=== PATIENT | female | born 1975 | race Asian ===

== ENCOUNTER 2022-03-04 21:01 | Emergency (ER) | payer MEDICARE, MEDICAID, SELFPAY ==
[2022-03-04 22:16] VITALS: BP 116/74; PULSE 86; RESP 16; TEMP 36.6; O2SAT 98; BMI 20.3
--- NOTE | 2022-03-04 23:55 | ED.NURSE ---
Pt brought back to [facility].
--- NOTE | 2022-03-05 00:14 | CRLHL7_ITS ---
For Patients: As a result of the Century Cures Act, medical imaging exams and procedure reports are released immediately into your electronic medical record. You may view this report before your referring provider. If you have questions, please contact your health care provider. HISTORY: Pain and swelling COMPARISON: None available. FINDINGS: The left foot is examined with AP, lateral, and oblique views. There is no sign of fracture or dislocation. There is moderate diffuse swelling of the distal foot, with no sign of any radiopaque foreign body or soft tissue gas. The soft tissues elsewhere in the foot are normal in appearance. There is a moderate posterior calcaneal spur. IMPRESSION: Moderate swelling of the distal foot with no sign of any osseous injury or radiopaque foreign body. Moderate posterior calcaneal spur. Dictated by Mohit Alexis MD @ 03/05/2022 1:11:04 AM (Electronically Signed)
--- NOTE | 2022-03-05 00:16 | ED_ITS ---
HPI - Extremity Injury (Lower) General Chief Complaint: Extremity Pain/Injury, Lower Stated Complaint: fall 2 times within 24 hours, swollen lft ankle Time Seen by Provider: 03/05/22 00:08 History of Present Illness HPI Narrative: 46-year-old woman presenting to the emergency department [facility] with complaint of left ankle area pain after a couple of falls in the last 2 days. She does have difficulty with mobility and has been now counseled to use a walker when getting about the home and over the years has had leg spasms of some sort that will cause her legs just give out sounds like particularly left leg. Has had increasing swelling and pain around her left ankle and foot. No other injuries sustained. Reports a history of ankle fracture at some point in the past as well. She has continued to painfully ambulate on this with her walker Epilepsy history Medications reviewed Review of Systems Status of ROS: Reports: 6 or more systems reviewed and unremarkable except as noted in History and below PFSH PFSH Social History Smoking Status: Never smoker Do you use any of these nicotine containing products: None Second hand tobacco smoke exposure: No How often do you have a drink containing alcohol: never How often do you have six or more drinks on one occasion: Never AUDIT-C Alcohol total score: 0 Non-prescribed substance use: denies use Exam Narrative: Exam Narrative: Very pleasant. Seated in wheelchair. NAD. Uncomfortable with movement of her left leg. Breathing easily. Cranial nerves 2-12 intact. Cardiovascular with regular rate and rhythm Moving all extremities without difficulty other than noted as above Diffusely tender left ankle and foot, not toes, moderate pitting edema as well. No significant erythematous changes Const: Vital Signs, click to edit/add: Vital Signs - 24 hr 03/04/22 22:16 03/05/22 01:17 03/05/22 02:05 Temperature 97.8 F 97.8 F Pulse Rate [Pulse Oximeter] 86 95 95 Respiratory Rate 16 16 Blood Pressure [Ri ght Upper Arm] 116/74 116/74 Pulse Oximetry 98 100 Oxygen Delivery Me thod Room Air Room Air Documenting provider has reviewed patient's vital signs: yes Course Vital Signs Vital signs: Initial Vital Signs Temperature 97.8 F 03/04/22 22:16 Temperature Source Temporal Artery Scan 03/04/22 22:16 Pulse Rate 86 03/04/22 22:16 Pulse Rhythm 03/04/22 22:16 Respiratory Rate 16 03/04/22 22:16 Blood Pressure 116/74 03/04/22 22:16 Blood Pressure Mean 88 03/04/22 22:16 Blood Pressure Position Sitting 03/04/22 22:16 Pulse Oximetry 98 03/04/22 22:16 Oxygen Delivery Method 03/04/22 22:16 Vital Signs Temperature 97.8 F 03/04/22 22:16 Pulse Rate 86 03/04/22 22:16 Respiratory Rate 16 03/04/22 22:16 Blood Pressure 116/74 03/04/22 22:16 Pulse Oximetry 98 03/04/22 22:16 Oxygen Delivery Method 03/04/22 22:16 Temperature 97.8 F 03/05/22 02:05 Pulse Rate 95 03/05/22 02:05 Respiratory Rate 16 03/05/22 02:05 Blood Pressure 116/74 03/05/22 02:05 Pulse Oximetry 100 03/05/22 01:17 Oxygen Delivery Method 03/05/22 01:17 MDM - Extremity Injury (Lower) MDM Narrative Medical decision making narrative: Given ice pack and Pilo wrap X-rays by my read show a transverse nondisplaced fracture at the distal fibula. There is some calcification medial to the fibula that might be residual from prior injury. No other acute abnormality identified in foot or ankle. Given mobility and strength and coordination concerns, I think a Cam boot will be the best way to protect this fracture and allow for most mobility. This was applied here in the ER Medical Records Attestation: I reviewed the patient's medical records. (Medical book brought by care provider from home) Discharge Plan Discharge Clinical Impression: Fracture of distal end of fibula, Foot sprain Patient Disposition: Home w/ Parent or Adult Condition: Stable Additional Instructions: Ice foot and ankle as discussed a couple of times daily over the next few days. Where this Cam boot when ambulating until follow-up. Recommending follow-up in 2 weeks with further recommendations at that time. Follow up with primary care or with Orthopedics --phone number [phone] Elevate and ibuprofen or acetaminophen for discomfort. Icing when uncomfortable going forward is useful too. Can ambulate as tolerated. Follow Up/Referrals: Monica Beckford PA [Primary Care Provider] - Stand Alone Forms: [facility] Info Inst[facility]
--- NOTE | 2022-03-05 00:32 | CRLHL7_ITS ---
For Patients: As a result of the Century Cures Act, medical imaging exams and procedure reports are released immediately into your electronic medical record. You may view this report before your referring provider. If you have questions, please contact your health care provider. INDICATION: HISTORY COMPARISON: None available. FINDINGS: AP, lateral and oblique views of the left ankle were obtained for a total of three views. There is an acute, transverse, nondisplaced fracture of the distal lateral malleolus. This is associated with prominent overlying soft tissue swelling. There is no sign of additional fracture or dislocation. Specifically, there is no sign of fracture of the medial malleolus. The ankle mortise is intact. The talar dome is intact. There is no sign of a joint effusion. The soft tissues are normal in appearance with no sign of foreign body. There is a moderate posterior calcaneal spur. IMPRESSION: Acute, nondisplaced, transverse fracture of the distal lateral malleolus. Prominent overlying soft tissue swelling. Dictated by Mohit Alexis MD @ 03/05/2022 1:32:43 AM (Electronically Signed)
--- OUTSIDE RECORDS SUMMARY | 2022-03-05 00:35 | XMS_ITS | Clinical Summary ---
:1975 Author Organization [facility] [place] [address] Care Team Providers Name Role Phone Monica Beckford Primary Care Provider Kathy Calvillo AuD Unavailable [phone] Allergies No known active allergies Medications Medication Sig Dispensed Refills Start Date End Date Status Multivitamin Cmb Take 1 tablet by 100 Tab 3 06/10/2013 Active No.21-Iron-FA (CENTRUM mouth once COMPLETE) 18-400 mg-mcg daily. tabIndications: Annual physical exam divalproex (DEPAKOTE) 1 tab in the AM, 0 06/16/2014 Active 500 mg Delayed-Release 1 tab at 4 pm, tabletIndications: and 1 tab at Unspecified epilepsy night without mention of intractable epilepsy phenytoin extended Take by mouth 0 06/16/2014 Active (DILANTIN) 30 mg ER once daily. At capsuleIndications: 8AM, takes with Unspecified epilepsy 100 mg tab. without mention of Total of 130 mg intractable epilepsy each AM. phenytoin extended Take 1 capsule 0 06/16/2014 Active (DILANTIN EXTENDED) 100 by mouth once mg ER daily. At 8AM. capsuleIndications: Takes with the Unspecified epilepsy 30 mg capsule. without mention of Total dose 130 intractable epilepsy mg each AM. levETIRAcetam (KEPPRA) 2 1/2 tablets 60 tablet 0 10/29/2014 Active 500 mg bid. tabletIndications: Unspecified epilepsy without mention of intractable epilepsy Magnesium 200 mg tab Take 1 tablet by 0 06/24/2015 Active mouth once daily. phenytoin extended Take 2 capsules 0 07/10/2017 Active (DILANTIN) 100 mg ER by mouth at capsule bedtime. metoprolol succinate Take 1 Tablet 90 Tablet 3 11/24/2021 Active (Toprol XL) 100 mg (100 mg) by Sustained-Release mouth once tabletIndications: HTN daily. (hypertension) amLODIPine (NORVASC) 5 Take 1 Tablet (5 90 Tablet 3 11/24/2021 Active mg tabletIndications: mg) by mouth HTN (hypertension) once daily. calcium Take 1 Tablet by 200 Tablet 4 11/24/2021 A ctive carbonate-vitamin D3, mouth in the 600 mg-400 unit, 600 morning and 1 mg-10 mcg (400 unit) Tablet in the tablet evening. Take with meals. clindamycin 1% Apply topically 180 g 3 11/24/2021 Active (CLEOCIN-T) 1 % to affected gelIndications: Other area(s) 2 times acne daily. Facial acne. cyclobenzaprine Take 1.5 Tablets 270 Tablet 3 11/24/2021 Active (FLEXERIL) 5 mg (7.5 mg) by tabletIndications: mouth in the Muscle spasm of left morning and 1.5 lower extremity Tablets (7.5 mg) in the evening. nystatin (MYCOSTATIN) Apply topically 30 g 0 11/24/2021 Active creamIndications: Yeast to affected infection of the skin area(s) 2 times daily. To rash area on chest. Hospital, Clinic, or Ordered Dose Route Frequency Start Date End D ate Status Other Facility Administered Medication medroxyPROGESTERone 150 mg IM Q 3 MONTHS (12 07/15/201906/07 0 Active acetate (contraceptive) WEEKS) 4 (DEPO-PROVERA) injection 150 mgIndications: Surveillance for Depo-Provera contraception Active Problems Problem Noted Date Muscle spasm of left lower extremity 11/07/2016 Anxiety disorder, unspecified 09/19/2016 Screening for osteoporosis 07/14/2015 Overview: Bone density done Jun 2015 due to long t erm Depo use. Borderline low Z score, likely due to Depo. Repeat in 2-3 years. Repeat bone density December 2021, stable. Recheck 3-5 years. Other acne 06/01/2010 Allergic rhinitis, cause unspecified 05/27/2009 Unspecified Epilepsy without Mention of Intractab 05/06 Overview: Sees [facility] PMDD (premenstrual dysphoric disorder) 05/21/2008 Overview: Treated with Depo Provera Developmental delay 05/21/2008 Encounters Date Type Specialty Care Team Description 03/02/2022 Nurse/Clinic Staff Only Immu nization/Injection (Depo shot) 03/02/2022 Travel 12/11/2021 Ancillary Procedure 12/11/2021 Travel from Last 3 Months Immunizations Name Administration Dates Next Due COVID-19 vaccine (Moderna 100mcg/0.5mL) PF, MDV 07/08/2020, 06/10/2020 DTP 10/01/1980, 06/26/1978 Oral Polio Vaccine 10/01/1980, 06/26/1978 Polio Virus, Unspecified 10/01/1980, 06/26/1978 Td, Preservative Free (age >= 7 Years) 02/11/2002 Tdap 06/04/2011 Tetanus Toxoid, Unspecified 10/01/1980, 06/26/1978 Family History Patient is adopted Medical History Relation Name Comments Unknown Father Unknown Mother Relation Name Status Comments Father Mother Social History Tobacco Use Types Packs/Day Years Used Date Never Smoker Smokeless Tobacco: Never Used Tobacco Cessation: Counseling Given: Yes Alcohol Use Standard Drinks/Week Comments No 0 (1 standard drink = 0.6 oz pure alcoho l) Sex Assigned at Date Recorded Not on file COVID-19 Exposure Response Date Recorded In the last 10 days, have you been in contact with No / Unsu re 03/02/2022 1:18 PM CDT someone who was confirmed or suspected to have Coronavirus/COVID-19? Obstetrics History Para Term AB IAB SAB Ectopic Multiple Living Live Births 0 0 0 0 0 0 0 0 0 0 Last Filed Vital Signs Vital Sign Reading Time Taken Comments Blood Pressure 105/64 03/02/2022 1:49 PM CDT Pulse 68 03/02/2022 1:49 PM CDT Temperature 36.7 ??C (98.1 ??F) 12/24/2017 2:17 PM CDT Respiratory Rate 20 07/19/2020 3:12 PM CDT Oxygen Saturation 100% 11/24/2021 10:52 AM CDT Inhaled Oxygen Concentration - - Weight 55.5 kg (122 lb 4.8 oz) 03/02/2022 1:49 PM CDT Height 149.9 cm (4' 11) 11/24/2021 10:52 AM CDT Body Mass Index 24.7 11/24/2021 10:52 AM CDT Plan of Treatment Health Maintenance Due Date Last Done Comments Pap test for age 21-65 08/10/1996 Mammogram for age 45-75 08/10/2020 Tetanus booster 06/04/2021 06/04/2011, 02/11/2002 COVID-19 vaccine series (4 - 11/13/2021 09/18/2021, 021, Booster for Moderna series) 06/10/2020 Influenza for age 9-49 01/04/2022 BMI (ht and wt on same day) for 11/24/2022 11/24/2021, 12/05, age 18+ 11/03/2020, Additional history exists Depression screening for age 12+ 11/28/2022 11/28/2021, , 11/04/2020, Additional history exists Lipids for age 45-75 01/19/2026 01/19/2021, 07/05/2016, 05/27/2009 Colonoscopy through age 75 10/24/2027 10/23/2017 Tdap Completed 06/04/2011 Hepatitis C screening for age Completed 11/24/2021 18-79 Procedures Procedure Name Priority Date/Time Associated Diagnosis Comme nts XR DXA BONE DENSITY Routine 12/11/2021 3:13 PM Osteoporosis, R esults for this 2 SITES AXIAL CDT unspecified procedure are in osteoporosis type, the resul ts unspecified section. pathological fracture presence from Last 3 Months Results XR DXA BONE DENSITY 2 SITES AXIAL (12/11/2021 3:13 PM CDT) Anatomical Region Laterality Modality Spine, HIPS, HIPL, HIPR Other Specimen (Source) Anatomical Location Collection Method / Collectio n Time Received Time / Laterality Volume Impressions 12/13/2021 5:26 PM CDT Expected bone mass for age. (Z-score > -2 for premenopausal women, and for men under the age of 50). Stable from last DXA in 2016. RECOMMENDATIONS: The National Osteoporosis Foundation rec ommends pharmacologic treatment for patients with T-scores of -2.5 or le ss, patients with prior history of fragility fractures, or patients with 10 -year probability of greater than 3% at hips or greater than 20% of suffer ing major osteoporotic fractures. Recommend continued optimization of calc ium and vitamin D intake through dietary means and/or supplementation and regular exercise. Repeat scan recommended in 3-5 years giv en borderline z-score of 1.9 at right hip and femoral neck. Naomi Lyle PA-C Narrative 12/13/2021 5:26 PM CDT For Patients: Results are automatically released to your [facility] ([facility]) account once available, in com pliance with federal regulations. This means that you may see your results before your provider has had a chance to review them. Please allow 2-3 business days for your provider to comment on the results. XR DXA Bone Mineral Density (BMD) EXAM LOCATION: [address] [address] PATIENT NAME: Irene Alvarenga DATE OF : 1975 EXAM DATE: 12/11/2021 REQUESTING PROVIDER: Monica Beckford PA GENDER AT : female HEIGHT: 4' 11 (11/24/2021) WEIGHT: ??121 lb (11/24/2021) MENOPAUSAL STATUS: Premenopausal RACE/ETHNICITY: White RISK FACTORS: Depo Provera, History of F ragility Fracture (at a major site), Seizure Medication(s), Weight < 1 27 lbs. and White Race CURRENT MEDICATION FOR BONE LOSS: NONE INDICATION: Follow-up of existing osteop orosis COMPARISON DATE(S): 2015 DXA scans are compared to prior studies for a patient only when the two (or more) studies were performed on the same scanner. It is not possible to compare data generated on one scanner to data from another because there are not standards in DXA equipment . This applies even if the two scanners are made by the same manufactur er. PROCEDURE: Dual-energy x-ray absorptiome try performed with routine technique. Reporting is completed in the form of a T-score. The T-score represents the standard deviation from p eak bone mass based on young healthy adult. A Z-score is used for shanda gnosis in premenopausal women, and for men under the age of 50. FINDINGS: RESULT LUMBAR SPINE L1 - L4 BMD: 0.974 g/cm2 T-Score: - 1.8 Z-Score: - 1.3 Change from prior in 2016: ??Increase 2. 4%. RESULTS FEMUR Left femoral neck BMD: 0.658 g/cm2 T-Score: - 2.7 Z-Score: - 1.9 Change from prior in 2016: ??Increase 1. 2%. Right femoral neck BMD: 0.653 g/cm2 T-Score: - 2.8 Z-Score: - 1.9 Change from prior in 2016: ??Decrease 0. 6%. Left hip BMD: 0.773 g/cm2 T-Score: - 1.9 Z-Score: - 1.3 Change from prior in 2016: ??Increase 6. 2%. Right hip BMD: 0.779 g/cm2 T-Score: - 1.8 Z-Score: - 1.2 Change from prior in 2016: ??Increase 0. 4%. WHO criteria: Normal: T-score at or above -1 SD Osteopenia: T-score between -1.1 and -2. 4 SD Osteoporosis: T-score at or below -2.5 S D Monica CESAR DEXA from Last 3 Months Insurance Payer Benefit Plan / Subscriber ID Effective Dates Phone Addre ss Type Group WC WORKERS COMP WC NONPROFIT [id number] 2014-Presen 30 01 NE INSURANCE TRUST [address] [address] WC WORKERS COMP WC NONPROFIT [id number] 2016-Prese 30 01 NE INSURANCE TRUST [address] [address] MEDICARE PART B MEDICARE PART B [id number] 2008-Presen ATTN: CLAIMS - HB USE ONLY HB ONLY t [address] [place] [address] MEDICARE - PB MEDICARE PB ONLY [id number] 2008-Presen ATTN: CLAIMS USE ONLY t [address] [place] [address] MEDICAID [place] MEDICAID [id number] 2011-Presen [address] [place] [address] [address] [address] Irene Alvarenga Workers Comp Self 1975 [address] [facility] (Home) [address] [address] Irene Alvarenga Workers Comp Self 1975 [address] (Home) [address] [place] [address] Care Teams Licensed Electrician Relationship Specialty Start Date End Date Monica Beckford PA PCP - General Family Practice 04/10/11 [address] [place] [address] Kathy Calvillo, [facility] 07/28/15 [address] [place] [address]
[2022-03-05 01:17] VITALS: PULSE 95; O2SAT 100
--- NOTE | 2022-03-05 01:57 | ED.NURSE ---
Small CAM walker boot applied to pt L leg.
[2022-03-05 02:05] VITALS: BP 116/74; PULSE 95; RESP 16; TEMP 36.6
== END 2022-03-05 02:06 | disposition home or self-care (01) ==
PROVIDERS: Emergency Provider Family Medicine; PCP Physician Assistant
DX: S82.832A Other fracture of upper and lower end of left fibula, initial encounter for closed fracture (principal); W19.XXXA Unspecified fall, initial encounter; R26.89 Other abnormalities of gait and mobility
CPT/HCPCS: 73610; 73630; 99283

== ENCOUNTER 2022-06-01 13:00 | Outpatient (RCR) | payer MEDICARE, MEDICAID, SELFPAY | END 2022-08-24 11:21 | disposition home or self-care (01) | PROVIDERS: PCP Physician Assistant; Visit Provider Physician Assistant | DX: R29.6 Repeated falls (principal); R29.898 Other symptoms and signs involving the musculoskeletal system; M62.838 Other muscle spasm; Z51.89 Encounter for other specified aftercare | CPT/HCPCS: 97110; 97162 ==

== ENCOUNTER 2024-09-27 13:48 | Emergency (ER) | payer MEDICARE, MEDICAID, SELFPAY ==
--- OUTSIDE RECORDS SUMMARY | 2024-09-27 13:50 | XMS_ITS | Clinical Summary ---
Author Organization [facility] Address [address] [place] [id number] Care Team Providers [employer] Name Role Phone Kathy Perez Shona Unavailable [phone] Nicolle Card Primary Care Provider [phone] Allergies No known active allergies Medications divalproex (DEPAKOTE) 500 mg Delayed-Release tabletIndicatio ns:Unspecified epilepsy without mention of intractable epilepsy (HC) 1 tab in the AM, 1 tab at 4 pm, and 1 tab at night 0 5 Active phenytoin extended (DILANTIN) 30 mg ER capsuleIndicati ons:Unspecified epilepsy without mention of intractable epilepsy (HC) Take by mouth once daily. At 8AM, takes with 100 mg tab. Total of 130 mg each AM. 0 5 Active phenytoin extended (DILANTIN EXTENDED) 100 mg ER capsuleIndicati ons:Unspecified epilepsy without mention of intractable epilepsy (HC) Take 1 capsule by mouth once daily. At 8AM. Takes with the 30 mg capsule. Total dose 130 mg each AM. 0 5 Active levETIRAcetam (KEPPRA) 500 mg tabletIndicatio ns:Unspecified epilepsy without mention of intractable epilepsy (HC) 2 1/2 tablets bid. 60 tablet 0 5 Active Magnesium 200 mg tab Take 1 tablet by mouth once daily. 0 6 Active phenytoin extended (DILANTIN) 100 mg ER capsule Take 2 capsules by mouth at bedtime. 0 8 Active Multivitamin Cmb No.21-Iron-FA (Centrum Complete) 18-400 mg-mcg tabIndications: Annual physical exam Take 1 Tablet by mouth once daily. 100 Tablet 3 3 Active wheelchairIndic ations:Developm ental delay,Muscle spasm of left lower extremity,Nonin tractable epilepsy without status epilepticus, unspecified epilepsy type (HC) Wheelchair: lt wt with leg rests: Swing away Length of need: 12 months 1 Each 3 Active benzoyl peroxide 5% 5 % gelIndications: Acne vulgaris Apply to face for acne once daily as needed. 60 g 3 4 Active calcium carbonate-vitam in D3, 600 mg-400 unit, 600 mg-10 mcg (400 unit) tabletIndicatio ns:Osteopenia, unspecified location Take 1 Tablet by mouth two times daily with meals. 200 Tablet 4 4 Active levothyroxine (SYNTHROID) 75 mcg tabletIndicatio ns:Hypothyroidi sm (acquired) TAKE 1 TABLET(75 MCG) BY MOUTH BEFORE BREAKFAST 90 Tablet 3 4 Active nystatin 100,000 unit/gram creamIndication s:Yeast infection of the skin Apply topically to affected area(s) two times daily. To rash area on chest. 30 g 4 Active sertraline (ZOLOFT) 50 mg tabletIndicatio ns:Anger reaction Take 1 Tablet (50 mg) by mouth once daily in the morning. 90 Tablet 3 4 Active cyclobenzaprine (FLEXERIL) 10 mg tabletIndicatio ns:Muscle spasm of left lower extremity Take 1 Tablet (10 mg) by mouth two times daily. 180 Tablet 3 4 Active amLODIPine (NORVASC) 5 mg tabletIndicatio ns:HTN (hypertension) Take 1 Tablet (5 mg) by mouth once daily. 90 Tablet 2 4 Active metoprolol succinate (Toprol XL) 100 mg Sustained-Relea se tabletIndicatio ns:HTN (hypertension) Take 1 Tablet (100 mg) by mouth once daily. 90 Tablet 2 4 Active urea-lactic acid-propylene gly (Kerasal Fungal Nail Renewal) solnIndications :Onychomycosis Apply topically to affected area(s). 10 mL 2 3 09/26/19 25 Discontinu ed(*Patien t states no longer taking) Hospital, Clinic, or Other Facility Administered Medication Ordered Dose Route Frequency Start Date End Date Status medroxyPROGESTERone acetate (contraceptive) (DEPO-PROVERA) injection 150 mgIndications:Surve illance for Depo-Provera contraception 150 mg IM Q 3 MONTHS (12 WEEKS) 07/15/2019 5 Discontinued Active Problems Problem Noted Date Diagnosed Date Hypothyroidism (acquired) 12/04/2023 Muscle spasm of left lower extremity 11/07/2016 Anxiety disorder, unspecified 09/19/2016 Screening for osteoporosis 07/14/2015 Overview (12/14/2021): Bone density done Jun 2015 due to moth exterminator Depo use. Borderline low Z score, likely due to Depo. Repeat in 2-3 years. Repeat bone density December 2021, stable. Recheck 3-5 years. 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 05/21/2008 Overview (05/21/2008): Sees RAFA PMDD (premenstrual dysphoric disorder) 9 Overview (05/21/2008): Treated with Depo Provera Developmental delay 05/21/2008 Encounters Date Type Department Care Team Description 09/25/2024 9:30 AM CDT Office Visit [facility] [address] [facility] [place] [address] Nicolle Card PA Medication Management (Discontinue the Depo/Discuss tea tree oil /); Memory Loss (Forgetfulness and remembering things ); Menopause (Hot flashes ) 09/25/2024 Travel 08/17/2024 3:30 PM CDT Nurse/Clinic Staff Only [facility] [address] [facility] [place] [address] Immunization/Injecti on (Depo provera injection) 08/17/2024 Travel from Last 3 Months Immunizations Immunization Administration Dates Next Due COVID-19 vaccine (Moderna 10 0mcg/0.5mL) PF, MDV 09/18/2021,07/08/2020,06/10/2020 DTP 10/01/1980,06/26/1978 Oral Polio Vaccine 10/01/1980,06/26/1978 Polio Virus, Unspecified 10/01/1980,06/26/1978 Td, Preservative Free (age >= 7 Years) 2 Tdap 11/24/2021,06/04/2011 Tetanus Toxoid, Unspecified 10/01/1980, 9 Family History * Patient is adopted Medical History Relation Name Comments Unknown Father Unknown Mother Relation Name Status Comments Father Mother Social History Tobacco Use Types Packs/Day Years Used Date Smoking Tobacco: Never Smokeless Tobacco: Never Tobacco Cessation:Counseling Given: Yes Alcohol Use Standard Drinks/Week Comments No 0 (1 standard drink = 0.6 oz pur e alcohol) PHQ-2 Answer Date Recorded PHQ-2 TOTAL SCORE 0 12/04/2023 Social Connections Answer Date Recorded Do you often feel lonely or isolated from those around you? 0 09/25/2024 Financial Resource Strain Answer Date R ecorded Difficulty of Paying Living Expenses 3 09/25/2024 Difficulty of Paying Living Expenses Not on file 09/25/2024 Food Insecurity Answer Date Recorded Do you worry your food will run out before you are able to buy more? 1 09/25/2024 Transportation Needs Answer Date Record ed Does lack of transportation keep you from medica l appointments? 1 09/25/2024 Does lack of transportation keep you from work, meetings or getting things that you need? 1 09/25/2024 Housing Stability Answer Date Recorded What is your housing situation today? 1 09/25/2024 Utilities Answer Date Recorded Do you have trouble paying f or utilities (for example, heat, electricity, water, phone)? 1 09/25/2024 Comments No Sex and Gender Information Value Date Recorded Sex Assigned at Not on file Legal Sex Female 6:15 AM [employer] ME[employer] Gender Identity Not on file Sexual Orientation Not on file Obstetrics History Para Term AB IAB SAB Ectopic Multiple Livin g Live Births 0 0 0 0 0 0 0 0 0 0 Last Filed Vital Signs Vital Sign Reading Time Taken Comments Blood Pressure 117/70 09/25/2024 9:32 AM CDT Pulse 94 09/25/2024 9:32 AM CDT Temperature 36.8 C (98.3 F) 11/30/2022 10:23 AM CDT Respiratory Rate 20 07/19/2020 3:12 PM CDT Oxygen Saturation 99% 09/25/2024 9:32 AM CDT Inhaled Oxygen Concentration - - Weight 57.6 kg (127 lb) 09/25/2024 9:32 AM CDT Height 151.2 cm (4' 11.53) 12/04/2023 3:02 PM C DT Body Mass Index 25.2 12/04/2023 3:02 PM CDT Plan of Treatment Upcoming Encounters Date Type Department Care Team (Late st Contact Info) Description 12/04/2024 10:20 AM CDT Office Visit [facility] [address] [place] [address] Nicolle Card PA [address] [place] [address] Health Maintenance Due Date Last Done Comments Hepatitis B series for 19+ (1 of 3 - 19+ 3-dose series) 08/10/1994 Pap test for age 21-65 08/10/1996 Mammogram for age 45-75 08/10/2020 COVID-19 vaccine series ( season) 2024 09/18/2021, 07/08/2020, 06/10/2020 BMI (ht and wt on same day) for age 18+ 12/03/2024 12/04/2023, 11/30/2022, 11/24/2021, Additional history exists Depression screening for age 12+ 12/05/2024 12/06/2023, 12/04/2023, 11/30/2022, Additional history exists Influenza Vaccine (Season Ended) 2025 Fecal testing sDNA-FIT (Cologuard) for age 45-75 07/05/2025 07/05/2022 Lipids for age 45-75 12/03/2028 12/04/2023, 11/30/2022, 01/19/2021, Additional history exists Tetanus booster 11/25/2031 11/24/2021, 05/08, 02/11/2002 Hepatitis C screening for age 18-79 Completed 11/24/2021 Tdap Completed 11/24/2021, 06/04/2011 HIV for age 15-65 Completed 11/30/2022 Pneumococcal series for age 6-49 Aged Out No longer eligible based on patient's age to complete this topic Procedures Procedure Name Priority Date/Time Associated Diagnosis Comments URINALYSIS MICROSCOPIC Routine 09/25/2024 10:11 AM CDT Memory problem TSH Routine 09/25/2024 10:11 AM CDT Memory problem COMP METABOLIC PANEL Routine 09/25/2024 10:11 AM CDT Memory problem CBC WITH AUTO DIFFERENTIAL Routine 09/25/2024 10:11 AM CDT Memory problem LIPID PANEL W REFLEX MEASURED LDL Routine 12/04/2023 4:09 PM CDT Screening for lipid disorders LC HIV-1/O/2, 4TH GENERATION Routine 11/30/2022 11:51 AM CDT Encounter for screening for human immunodeficiency virus (HIV) SCAN-FECAL TEST DNA (COLOGUARD) 07/05/2022 12:00 AM [employer] MECH[employer]IC ANTI HCV Routine 11/24/2021 11:44 AM CDT Need for hepatitis C screening test from Last 3 Months or Most Recently Relevant to Health Maintenance Results * (ABNORMAL) URINALYSIS MICROSCOPIC [77563.1] - routine (09/25/2024 10:11 AM CDT) RBC 0-2 0-2, None Seen /HPF 09/25/2024 3:49 PM CDT [facility] WBC 26-50(A) 0-2, 3-5, None Seen /HPF 09/25/2024 3:49 PM CDT [facility] BACTERIA Rare None Seen, Rare, Few Bacteria/H PF 09/25/2024 3:49 PM CDT [facility] EPITHELIAL CELLS Few None Seen, Few Epi/HPF 09/25/2024 3:49 PM CDT [facility] HYALINE CASTS 0-2 0-2, 3-5 /LPF 09/25/2024 3:49 PM CDT [facility] Urine URINE SPECIMEN / Unknown Non-Blood / Unknown 09/25/2024 10:11 AM CDT 09/25/2024 10:20 AM CDT Nicolle CESAR URINE Final Res ult [facility] [address] [place] [address], * TSH (09/25/2024 10:11 AM CDT) TSH 0.98 mIU/L [facility] Comment: Reference Range > or = 20 Years 0.40-4.50 Ranges First trimester 0.26-2.66 Second trimester 0.55-2.73 Third trimester 0.43-2.91 Blood BLOOD SPECIMEN / Unknown 09/25/2024 10:11 AM CDT 09/25/2024 10:12 AM CDT Nicolle CESAR CHEMISTRY Final Res ult [facility] [address] [place] [address], [place] [phone] [facility] [address] [place] [address] * CBC AND DIFFERENTIAL (09/25/2024 10:11 AM CDT) WHITE BLOOD CELL COUNT 7.3 3.8 - 10.8 Thousand/u L [facility] RED BLOOD CELL COUNT 4.04 3.80 - 5.10 Million/uL [facility] HEMOGLOBIN 12.8 11.7 - 15.5 g/dL [facility] HEMATOCRIT 39.4 35.0 - 45.0 % [facility] MCV 97.5 80.0 - 100.0 fL [facility] MCH 31.7 27.0 - 33.0 pg [facility] MCHC 32.5 32.0 - 36.0 g/dL [facility] Comment: For adults, a slight decrease in the calculated MCHC value (in the range of 30 to 32 g/dL) is most likely not clinically significant; however, it should be interpreted with caution in correlation with other red cell parameters and the patient's clinical condition. RDW 12.7 11.0 - 15.0 % [facility] PLATELET COUNT 272 140 - 400 Thousand/u L [facility] MPV 10.1 7.5 - 12.5 fL [facility] ABSOLUTE NEUTROPHILS 3,051 1,500 - 7,800 cells/uL [facility] ABSOLUTE LYMPHOCYTES 3,314 850 - 3,900 cells/uL [facility] ABSOLUTE MONOCYTES 650 200 - 950 cells/uL [facility] ABSOLUTE EOSINOPHILS 212 15 - 500 cells/uL [facility] ABSOLUTE BASOPHILS 73 0 - 200 cells/uL [facility] NEUTROPHILS 41.8 % [facility] LYMPHOCYTES 45.4 % [facility] MONOCYTES 8.9 % [facility] EOSINOPHILS 2.9 % [facility] BASOPHILS 1.0 % [facility] Blood BLOOD SPECIMEN / Unknown 09/25/2024 10:11 AM CDT 09/25/2024 10:12 AM CDT us Nicolle CESAR HEMATOLOGY Final Res ult [facility] [address] [place] [address], [facility] [address] [place] [address] * (ABNORMAL) COMP METABOLIC PANEL (09/25/2024 10:11 AM CDT) [facility] GLUCOSE 85 65 - 99 mg/dL [facility] Comment: Fasting reference interval UREA NITROGEN (BUN) 6(L) 7 - 25 mg/dL [facility] CREATININE 0.47(L) 0.50 - 0.99 mg/dL [facility] EGFR 117 > OR = 60 mL/min/1.7 3m2 [facility] BUN/CREATININE RATIO 13 6 - 22 (calc) [facility] SODIUM 142 135 - 146 mmol/L [facility] POTASSIUM 4.1 3.5 - 5.3 mmol/L [facility] CHLORIDE 106 98 - 110 mmol/L [facility] CARBON DIOXIDE 28 20 - 32 mmol/L [facility] CALCIUM 9.4 8.6 - 10.2 mg/dL [facility] PROTEIN, TOTAL 6.9 6.1 - 8.1 g/dL [facility] ALBUMIN 4.0 3.6 - 5.1 g/dL [facility] GLOBULIN 2.9 1.9 - 3.7 g/dL (calc) [facility] ALBUMIN/GLOBULIN RATIO 1.4 1.0 - 2.5 (calc) [facility] BILIRUBIN, TOTAL 0.3 0.2 - 1.2 mg/dL [facility] ALKALINE PHOSPHATASE 65 31 - 125 U/L [facility] AST 17 10 - 35 U/L [facility] ALT 20 6 - 29 U/L [facility] Blood BLOOD SPECIMEN / Unknown 09/25/2024 10:11 AM CDT 09/25/2024 10:12 AM CDT us Nicolle CESAR CHEMISTRY Final Res ult [facility] [address] [place] [address], [place] [phone] [facility] [address] [address] * (ABNORMAL) LIPID PANEL W REFLEX MEASURED LDL (12/04/2023 4:09 PM CDT) CHOLESTEROL,TOTAL 197 100 - 199 mg/dL 12/05/2023 5:16 PM CDT [facility] Comment: Cholesterol, Total Reference Ranges Desirable <200 mg/dL Borderline 200-239 mg/dL High >=240 mg/dL TRIGLYCERIDES 171(H) <150 mg/dL 12/05/2023 5:16 PM CDT [facility] HDL CHOLESTEROL 69 >40 mg/dL 5:16 PM CDT [facility] NON-HDL CHOLESTEROL 128 <145 mg/dl 12/05/2023 5:16 PM CDT [facility] CHOL/HDL RATIO 2.86 <4.50 12/05/2023 5:16 PM CDT [facility] LDL CHOLESTEROL 94 <=130 mg/dL 12/05/2023 5:16 PM CDT [facility] VLDL CHOLESTEROL 34(H) <=30 mg/dL 12/05/2023 5:16 PM CDT [facility] PROVIDER ORDERED STATUS RANDOM 12/05/2023 5:16 PM CDT [facility] Blood BLOOD SPECIMEN / Unknown Venipuncture / Unknown 12/04/2023 4:09 PM CDT 12/04/2023 4:10 PM CDT us Nicolle CESAR CHEMISTRY Final Res ult [facility] [address] [place] [address], [place] * LC HIV-1/O/2, 4TH GENERATION (11/30/2022 11:51 AM CDT) HIV Scr 4th Gen Non Reactive Non Reactive 12/04/2022 10:[address] [facility] Comment: HIV Negative HIV-1/HIV-2 antibodies and HIV-1 p24 antigen were NOT detected. There is no laboratory evidence of HIV infection. Blood BLOOD SPECIMEN / Unknown Venipuncture / Unknown 11/30/2022 11:51 AM CDT 11/30/2022 11:[address] [facility] - 12/04/2022 10:07 PM CDT Performed at: - [facility] [place] [id number] Production Clerk: Ronaldo Chaves MD, Phone: [phone] us Nicolle CESAR LABORATORY Final Res ult Performing Organization Address City/[facility]/ZIP Co de Phone Number [facility] ([facility]) [address] [place] [address], * SCAN-FECAL TEST DNA (COLOGUARD) (07/05/2022 12:00 AM [employer] MECHANIC) us Scanner OTHER Final Result * ANTI HCV (11/24/2021 11:44 AM CDT) Pathologist [facility] HEPATITIS C ANTIBODY Non-React pk Non-React pk 11/25/2021 12:14 AM CDT [facility] Comment:Antibodies to HCV no t detected; does not exclude the possibility of exposure to HCV. Blood BLOOD SPECIMEN / Unknown Venipuncture / Unknown 11/24/2021 11:44 AM CDT 11/24/2021 11:44 AM CDT us Monica CESAR SEND OUTS Final Resu lt [facility] [address] [place] [address], [place] from Last 3 Months or Most Recently Relevant to Health Maintenance Insurance MEDICARE PB ONLY Member Subscriber Plan / Payer (Ef fective 2008-Present) Name:Irene Alvarenga Member ID:[id number] Relation to Subscriber:Self Name:Irene Alvarenga Subscriber ID:[id number] Payer ID:Not on file Group ID:Not on file Type:Not on file Address: ATTN: CLAIMS [address] MEDICAID MEDICARE PART B HB ONLY MEDICARE PART A HB ONLY NONPROFIT INSURANCE TRUST [employer] [id number] [place] [id number] NONPROFIT INSURANCE TRUST Care Teams [employer] Relationship Specialty Start Date End Date Nicolle Card PA [address] [facility] [place] [address] PCP - General Physician Assessment Analyst 11/30/22 Kathy Perez AuD [address] [facility] [place] [address] Audiology 07/28/15
[2024-09-27 14:01] VITALS: BP 137/84; PULSE 97; RESP 18; TEMP 36.1; O2SAT 99
--- NOTE | 2024-09-27 14:23 | CRLHL7_ITS ---
For Patients: As a result of the Cures Act, medical imaging exams and procedure reports are released immediately into your electronic medical record. You may view this report before your referring provider. If you have questions, please contact your health care provider. INDICATION: Injury, left great toe. COMPARISON: 03/05/2022. TECHNIQUE: Left great toe 3 views. FINDINGS: No acute fracture or dislocation of the left great toe No fractures of the remainder of the visualized left foot. Degenerative changes of the IP joints and 1st MTP joint. IMPRESSION: No acute findings. Dictated by Rajesh Welsh MD @ 09/27/2024 3:17:15 PM (Electronically Signed)
--- NOTE | 2024-09-27 14:24 | ED_ITS ---
HPI - Extremity Injury (Lower) General Chief Complaint: Extremity Pain/Injury, Lower Stated Complaint: Broken toe on L foot Time Seen by Provider: 09/27/24 13:51 History of Present Illness HPI Narrative: This 49-year-old female comes in with her sister and a caregiver [facility]. There is concerned that she injured her left great toe. She wears a brace on this foot and does not report any particular injury event. She has some bruising and swelling of the left great toe and the bruising appears to be several days old. She also is in clinic a couple days ago and had a urinalysis but there was no return call for results. The patient's sister looked it up on MyChart and urinalysis does show evidence of infection. Related Data Home Medications ?Medication ?Instructions ?Recorded ?Confirmed amlodipine 5 mg tablet 5 mg PO DAILY 12/14/2209/27 benzoyl peroxide 5 % topical gel 1 applic topical LIVIER Y PRN 12/14/22 09/27/24 cyclobenzaprine 5 mg tablet 10 mg PO Q12H PRN 12/14/22 09/27/24 divalproex 500 mg tablet,delayed 500 mg PO 3XD 3 09/27/24 release levetiracetam 500 mg tablet 1,250 mg PO Q12H 12/14/22 09/27/24 levothyroxine 75 mcg tablet 75 mcg PO DAILY 12/14/22 0 09/27/24 magnesium 250 mg tablet 250 mg PO QDAY 12/14/2209/04 metoprolol succinate 100 mg 100 mg PO DAILY 12/14/22 0 09/27/24 tablet,extended release 24 hr nystatin 100,000 unit/gram topical 1 applic topical BI D 12/14/22 09/27/24 cream phenytoin sodium extended 100 mg 100 mg PO DAILY 12/1409/27/24 capsule (Dilantin Extended) phenytoin sodium extended 30 mg 30 mg PO QPM 12/14/22 09/27/24 capsule (Dilantin) sertraline 50 mg tablet 50 mg PO DAILY 12/14/2209/04 calcium carb 600 mg(1,500 mg)-vit 1 tab PO BID 5 09/27/24 D3 400 unit-minerals chewable tablet levetiracetam 500 mg tablet 1,250 mg PO Q12H 09/27/24 09/27/24 (Keppra) multivitamin-ferrous 1 tab PO DAILY 09/27/2409/04 fumarate-folic acid 18 mg-400 mcg tablet (Centrum) phenytoin sodium 100 mg capsule 200 mg PO HS 09/27/24 09/27/24 Previous Rx's ?Medication ?Instructions ?Recorded cephalexin 500 mg capsule 500 mg PO TID 5 days #15 cap s 09/27/24 Allergies Allergy/AdvReac Type Severity Reaction Status Date / Time No Known Drug Allergies Allergy Verified 09/27/24 14:18 Review of Systems Status of ROS: Reports: unobtainable due to mental status [facility] [place] Medical History (Updated 09/27/24 @ 15:00 by Hunter Magdaleno MD) Fracture of left fibula (~10/2017) ?S82.402A - Unspecified fracture of shaft of left fibula, initial encounter for closed fracture (ICD-10) Closed head injury without loss of consciousness ?S09.90XA - Unspecified injury of head, initial encounter (ICD-10) Fracture of multiple sites of phalanges of hand (09/09/14) ?S62.609A - Fracture of unspecified phalanx of unspecified finger, initial encounter for closed fracture (ICD-10) Surgical History (Updated 12/05/22 @ 13:00 by Randell Dotson) History of hand surgery (09/22/14) ?Z98.890 - Other specified postprocedural states (ICD-10) Social History Smoking Status: Never smoker Do you use any of these nicotine containing products: None Second hand tobacco smoke exposure: No How often do you have a drink containing alcohol: never How often do you have six or more drinks on one occasion: Never AUDIT-C Alcohol total score: 0 Non-prescribed substance use: denies use Exam Narrative: Exam Narrative: Constitutional: Well-developed, well-nourished, no acute distress. HEENT: Normocephalic, atraumatic. Neck: Normal range of motion. Nontender. Supple. Heart: Intact distal pulses. Lungs: No chest discomfort. No wheezes, rhonchi, or rales. Abdomen: Nontender. Back: Normal range of motion. Extremities: Normal range of motion. Mild swelling and bruising around the left great toe. Skin: Intact. No rash. Warm. No erythema or pallor. Neurologic: No altered sensation. No weakness. Alert and oriented. Psychiatric: No suicidality. No anxiety or depression. No insomnia. Nursing notes and vitals signs are reviewed. Const: Vital Signs, click to edit/add: Vital Signs - 24 hr 09/27/24 14:01 Temperature 97 F L Pulse Rate [Pulse Oximeter] 97 Respiratory Rate 18 Blood Pressure [Ri ght Upper Arm] 137/84 Pulse Oximetry 99 Oxygen Delivery Me thod Room Air Course Vital Signs Vital signs: Initial Vital Signs Temperature 97 F L 09/27/24 14:01 Temperature Source Temporal Artery Scan 09/27/24 14:01 Pulse Rate 97 09/27/24 14:01 Respiratory Rate 18 09/27/24 14:01 Blood Pressure 137/84 09/27/24 14:01 Blood Pressure Mean 101 09/27/24 14:01 Blood Pressure Position Sitting 09/27/24 14:01 Pulse Oximetry 99 09/27/24 14:01 Oxygen Delivery Method Room Air 09/27/24 14:01 Vital Signs Temperature 97 F L 09/27/24 14:01 Pulse Rate 97 09/27/24 14:01 Respiratory Rate 18 09/27/24 14:01 Blood Pressure 137/84 09/27/24 14:01 Pulse Oximetry 99 09/27/24 14:01 Oxygen Delivery Method Room Air 09/27/24 14:01 Temperature 97 F L 09/27/24 14:01 Pulse Rate 97 09/27/24 14:01 Respiratory Rate 18 09/27/24 14:01 Blood Pressure 137/84 09/27/24 14:01 Pulse Oximetry 99 09/27/24 14:01 Oxygen Delivery Method Room Air 09/27/24 14:01 MDM - Extremity Injury (Lower) MDM Narrative Medical decision making narrative: This patient has an injury to her left toe as there is discomfort and bruising. She does not report any specific injury event. X-ray images by my review show no sign of fracture or dislocation. The patient does wear brace on this foot and leg and this injury may be related to overuse or discomfort with respect to that brace. In any event she is okay to be discharged home and encouraged increase activity as tolerated and use [id number] medicines as needed and directed. The patient's sister does show me on her my chart the results of urinalysis which do show sign of infection. I did provide a prescription for Keflex to her preferred pharmacy. Discharge Plan Discharge Clinical Impression: Injury of toe on left foot, Urinary tract infection Patient Disposition: Home w/ Parent or Adult Condition: Unchanged Additional Instructions: Take medication as prescribed. Use [id number] medicines as needed and directed and increase activity as tolerated. Prescriptions: New cephalexin 500 mg capsule 500 mg PO TID 5 Days Qty: 15 0RF No Action benzoyl peroxide 5 % gel 1 applic topical DAILY PRN levothyroxine 75 mcg tablet 75 mcg PO DAILY nystatin 100,000 unit/gram cream 1 applic topical BID phenytoin sodium extended [Dilantin Extended] 100 mg capsule 100 mg PO DAILY Patient Comments: Takes 130mg PO at 8AM. divalproex 500 mg tablet,delayed release (DR/EC) 500 mg PO 3XD levetiracetam 500 mg tablet 1,250 mg PO Q12H metoprolol succinate 100 mg tablet extended release 24 hr 100 mg PO DAILY Dilantin 30 mg capsule 30 mg PO QPM Patient Comments: Takes 130mg PO 8AM. sertraline 50 mg tablet 50 mg PO DAILY amlodipine 5 mg tablet 5 mg PO DAILY cyclobenzaprine 5 mg tablet 10 mg PO Q12H PRN magnesium 250 mg tablet 250 mg PO QDAY Centrum 18-400 mg-mcg tablet 1 tab PO DAILY calcium carbonate-vit D3-min 600 mg (1,500 mg)-400 unit tablet,chewable 1 tab PO BID phenytoin sodium 100 mg capsule 200 mg PO HS levetiracetam [Keppra] 500 mg tablet 1,250 mg PO Q12H Follow Up/Referrals: Monica Beckford PA [Primary Care Provider, Family Practice] Stand Alone Forms: [employer] Info Instructions
== END 2024-09-27 15:13 | disposition home or self-care (01) ==
PROVIDERS: Emergency Provider Emergency Medicine Emergency Medical Services; PCP Physician Assistant
DX: S99.922A Unspecified injury of left foot, initial encounter (principal); N39.0 Urinary tract infection, site not specified
CPT/HCPCS: 73660; 99284